=== PATIENT | male | born 1985 | race Caucasian/White ===

== ENCOUNTER 2016-10-09 10:19 | Inpatient (IN) | payer BC ==
[2016-10-09] MEDS ORDERED: NITROGLYCERIN OINT 1 INCH/GM PACKET TOPICAL STA (10:43)
[2016-10-09] MEDS ORDERED: ASPIRIN 81 MG CHEW PO STA (10:43)
--- NOTE | 2016-10-09 10:53 | ED ---
General Adult HPI - General Chief complaint: Chest Pain Stated complaint: chest pain Time Seen by Provider: 10/09/16 10:30 Source: patient, RN notes reviewed Mode of arrival: wheelchair Limitations: no limitations - History of Present Illness Initial comments: This is a 31-year-old male who presents emergency department with no significant past medical history. Patient denies diabetes hypertension high cholesterol or smoking history. Patient comes in today because he is complaining of left-sided chest pain he thinks it's sharp in nature and occasionally radiates down his left arm. Patient states that the pain is been intermittent lasting couple hours at a time. Patient states he has noticed some shortness of breath but nothing significant. Patient denies any diaphoresis. Patient denies any nausea. Patient denies any similar symptoms in the past. Patient denies any abdominal pain patient denies vomiting or diarrhea. Patient states she's not been any recent long trips or travel. Patient denies any leg pain or calf tenderness. Patient denies any leg swelling. Patient denies any recent fever chills or cough. - Related Data Home Medications Medication Instructions Recorded Confirmed Albuterol Inhaler [Ventolin Hfa 1 - 2 puff INHALATION RT-Q6H PRN 10/09/16 Inhaler] Dextroamphetamine/Amphetamine 30 mg PO DAILY 10/09/16 10/09/16 [Adderall] Allergies Allergy/AdvReac Type Severity Reaction Status Date / Time No Known Allergies Allergy Verified 10/09/16 10:59 Review of Systems ROS Statement: Those systems with pertinent positive or pertinent negative responses have been documented in the HPI. ROS Other: All systems not noted in ROS Statement are negative. Past Medical History Past Medical History: No Reported History History of Any Multi-Drug Resistant Organisms: None Reported Past Surgical History: Hernia Repair, Orthopedic Surgery Past Psychological History: No Psychological Hx Reported Smoking Status: Never smoker Past Alcohol Use History: Rare Past Drug Use History: None Reported General Exam - General Exam Comments Initial Comments: GENERAL: Patient is well-developed and well-nourished. Patient is nontoxic and well- hydrated and is in mild distress. ENT: Neck is soft and supple. No significant lymphadenopathy is noted. Oropharynx is clear. Moist mucous membranes. Neck has full range of motion without eliciting any pain. EYES: The sclera were anicteric and conjunctiva were pink and moist. Extraocular movements were intact and pupils were equal round and reactive to light. Eyelids were unremarkable. PULMONARY: Unlabored respirations. Good breath sounds bilaterally. No audible rales rhonchi or wheezing was noted. CARDIOVASCULAR: There is a regular rate and rhythm without any murmurs gallops or rubs. ABDOMEN: Soft and nontender with normal bowel sounds. No palpable organomegaly was noted. There is no palpable pulsatile mass. SKIN: Skin is clear with no lesions or rashes and otherwise unremarkable. NEUROLOGIC: Patient is alert and oriented x3. Cranial nerves II through XII are grossly intact. Motor and sensory are also intact. Normal speech, volume and content. Symmetrical smile. MUSCULOSKELETAL: Normal extremities with adequate strength and full range of motion. LYMPHATICS: No significant lymphadenopathy is noted PSYCHIATRIC: Normal psychiatric evaluation. Normal interpersonal interactions appears functionally intact in deals appropriately with others. No signs of depression. No signs of anxiety. Limitations: no limitations Course Vital Signs 10/09/16 10/09/16 10:29 10:38 Temperature 99.0 F Pulse Rate 83 85 Respiratory 20 18 Rate Blood Pressure 126/74 138/74 O2 Sat by Pulse 99 100 Oximetry Medical Decision Making - Medical Decision Making EKG shows normal sinus rhythm at 74 bpm MI interval 144 QRS is 100 QT interval 348 QTC is 386. Patient's EKG shows ST segment elevation in leads II, III, and F aVF. Soon as I saw the elevation I spoke with Dr. Taco Gonzalez down immediately to see the patient in the emergency department. Patient is going to the [facility] per Dr. Weaver. Patient remained chest pain free throughout the ED stay Critical Care Time Critical Care Time: Yes Total Critical Care Time: 35 Disposition Clinical Impression: ST elevation myocardial infarction (STEMI) Disposition: ADMITTED IP TO THIS HOSP Referrals: Darnell Diaz MD [Primary Care Provider] - 1-2 days Time of Disposition: 11:04
[2016-10-09] MEDS ORDERED: HEPARIN SODIUM,PORCINE 5,000 UNIT/ML 1 ML VIAL IV ONE (11:06)
[2016-10-09] MEDS ORDERED: ATORVASTATIN 80 MG TAB PO STA (11:06)
[2016-10-09 11:08] LABS: Basophils # (A) 0.1 k/uL (0-0.2); Basophils % (A) 1 %; CH 30.6; CHCM 35.4; Eosinophils # (A) 0.2 k/uL (0-0.7); Eosinophils % (A) 2 %; HCT 44.4 % (39.0-53.0); HDW 3.08; HGB 15.6 gm/dL (13.0-17.5); Luc # (Auto) 0.13; Luc % (Auto) 1; Lymphocytes # (A) 1.7 k/uL (1.0-4.8); Lymphocytes % (A) 18 %; MCH 30.4 pg (25.0-35.0); MCHC 35.1 g/dL (31.0-37.0); MCV 86.8 fL (80.0-100.0); Mean Platelet Volume 7.8; Monocytes # (A) 0.4 k/uL (0-1.0); Monocytes % (A) 5 %; Neutrophils # (A) 6.9 k/uL (1.3-7.7); Neutrophils % (A) 73 %; RBC 5.11 m/uL (4.30-5.90); RDW 13.1 % (11.5-15.5); WBC 9.4 k/uL (3.8-10.6); WBC (Perox) 8.93
[2016-10-09] MEDS ORDERED: LIDOCAINE 2% INJ 20 MG/ML (20 ML MDV) ONE (11:08)
[2016-10-09 11:12] LABS: ALT 43 U/L (21-72); AST 76 U/L (17-59); Alkaline Phosphatase 78 U/L (38-126); Anion Gap 10 mmol/L; Blood Urea Nitrogen 12 mg/dL (9-20); Calcium 9.4 mg/dL (8.4-10.2); Carbon Dioxide 26 mmol/L (22-30); Chloride 105 mmol/L (98-107); Glucose 110 mg/dL (74-99); Non-African American GFR(MDRD) >60 (>60 ml/min/1.73 sqM); Potassium 4.1 mmol/L (3.5-5.1); Sodium 141 mmol/L (137-145); Total Bilirubin 0.8 mg/dL (0.2-1.3); Total Protein 7.6 g/dL (6.3-8.2)
--- NOTE | 2016-10-09 11:12 | XR ---
EXAMINATION TYPE: XR chest 1V DATE OF EXAM: 10/09/2016 COMPARISON: NONE HISTORY: Chest pain today. TECHNIQUE: Single AP portable frontal upright view of the chest is obtained. FINDINGS: There is no focal air space opacity, pleural effusion, or pneumothorax seen. The cardiac silhouette size is within normal limits. The osseous structures are intact. IMPRESSION: No acute process.
--- NOTE | 2016-10-09 11:19 | CONS ---
DATE OF CONSULTATION: CHIEF COMPLAINT: Chest pain. This is a 31-year-old gentleman with no significant past medical history who initially presented to an urgent care center with chest pain. He describes it as precordial chest tightness 6 out of 10 intensity that radiated to both his arms, was associated with some shortness of breath and diaphoresis. He had an EKG that showed inferior ST elevation due to which he was sent to the emergency room at [facility] where I am seeing him for the first time. The patient received nitro paste following which he became pain free. He does have ST segment elevation in inferior leads even on the EKG that was repeated here at the hospital. There is no prior history of exertional chest pain or shortness of breath. There is no medical history at all. MEDICATIONS: None. ALLERGIES: None. FAMILY HISTORY: Negative for premature coronary artery disease. SOCIAL HISTORY: Negative for smoking, EtOH abuse or drug abuse. REVIEW OF SYSTEMS: HEENT: Unremarkable. CARDIAC: As described above. RESPIRATORY: Negative. GI: Negative. GENITOURINARY: Negative. ALLERGY/IMMUNOLOGY: Negative. SKIN: Negative. MUSCULOSKELETAL: Negative. ENDOCRINE: Negative. HEMATOLOGICAL: Negative. DERMATOLOGIC: Negative. CONSTITUTIONAL: Negative. ONCOLOGICAL: Negative. The rest of the system review is not relevant. On exam, comfortable at rest. Vital signs are stable. There is no jugular venous distention. Carotid upstroke is normal. There is no bruit. Chest is clear to auscultation and percussion. Heart exam reveals first and second heart sounds. No gallop. No murmur, no rub. Abdomen is soft, nontender. Exam of extremities did not reveal edema. Peripheral pulses are felt. Pulses are equal and normal in both upper extremities. Blood pressures are equal and normal in both upper extremities. Labs are pending at this time. ASSESSMENT: Chest pain with ST segment elevation in inferior leads, probably due to acute inferior wall myocardial infarction. PLAN: The patient is relatively young, does not have any risk factors, but I do not have any explanation for his chest pain and the EKG changes, hence, I advised him to undergo emergent cardiac catheterization. I explained to him risks, benefits, and alternatives. He understood and accepted.
[2016-10-09 11:24] LABS: Partial Thromboplastin Time 24.7 sec (22.0-30.0); Prothrombin Time 10.1 sec (9.0-12.0)
[2016-10-09] MEDS ORDERED: MIDAZOLAM 2 MG/2 ML VIAL ONE (11:30)
[2016-10-09] MEDS ORDERED: MIDAZOLAM 2 MG/2 ML VIAL IV ONE (11:32)
[2016-10-09] MEDS ORDERED: LIDOCAINE 2% INJ 20 MG/ML SQ ONE (11:35)
[2016-10-09] MEDS ORDERED: SODIUM CHLORIDE 0.9% 1,000 ML IV ONE (11:36)
[2016-10-09] MEDS ORDERED: IOHEXOL 350 MG/ML 125ML BOTTLE INJ ONE (11:46)
[2016-10-09] MEDS ORDERED: RX INFO: IV CONTRAST WAS GIVEN 1 EACH MISC MISCELLANE PRN (11:52)
[2016-10-09 11:54] LABS: Creatine Kinase MB 26.1 ng/mL (0.0-2.4)
[2016-10-09 11:55] LABS: Troponin I 14.3 ng/mL (0.000-0.034)
--- NOTE | 2016-10-09 12:09 | CC ---
DATE OF SERVICE: INDICATION: Acute inferior wall myocardial infarction. PROCEDURE NOTE: After obtaining informed consent, left heart catheterization and coronary angiogram and LV gram were performed via the right femoral artery using standard Shari catheters. Patient tolerated the procedure well without any immediate complications. FINDINGS: 1. HEMODYNAMICS: Left ventricular end-diastolic pressure is 10 mm. There is no significant gradient across the aortic valve. 2. LEFT VENTRICULOGRAM: Left ventriculogram was performed in ESTEBAN position, shows mildly dilated left ventricle with diffuse global hypokinesis with an ejection fraction of around 45%. 3. ANGIOGRAPHIC DATA: LEFT MAIN CORONARY ARTERY: Left main coronary artery is a normal size vessel and is free of stenosis. It divides into left anterior descending coronary artery and circumflex coronary artery. LAD and its branches and circumflex coronary artery are free of significant disease. Right coronary artery is a large dominant vessel and is free of significant stenosis. CONCLUSION: 1. Mild LV systolic dysfunction with global hypokinesia with more regional hypokinesis involving basal and inferior wall of unclear significance. 2. Normal coronaries. PLAN: Patient will be admitted to hospital and watched overnight. I will obtain a 2-D echo to rule out pericardial disease, pericardial effusion. I will obtain ( ).
[2016-10-09 12:38] LABS: Cholesterol 140 mg/dL (<200); HDL Cholesterol 47 mg/dL (40-60); Triglycerides 79 mg/dL (<150)
[2016-10-09] MEDS: ATENOLOL 25 MG TAB PO SCH (14:33)
[2016-10-09] MEDS: SODIUM CHLORIDE 0.9% 1,000 ML IV SCH ×2 (14:37→21:36)
[2016-10-09] MEDS: ACETAMINOPHEN TAB 500 MG TAB PO PRN (17:53)
[2016-10-10] MEDS: ACETAMINOPHEN TAB 500 MG TAB PO PRN (06:01)
[2016-10-10] MEDS ORDERED: HYDROmorphone 1 MG/ML 1 ML SYRINGE IVP STA (06:08)
--- NOTE | 2016-10-10 06:33 | HP ---
DATE OF ADMISSION: 10/09/2016 PRESENTING COMPLAINT: Chest pain. HISTORY OF PRESENTING COMPLAINT: This is a pleasant 31-year-old patient of Dr. Diaz with unremarkable past medical history except that for ADD. The patient last Friday had an episode of fever, felt congested, and symptoms lasted for about 24 hours. The patient's 2 sons had been sick sequentially. Patient then did well up until 5 days later when on Friday patient had some discomfort in the chest precordial, just felt a bit tired. Symptoms present on and off until Friday morning, that is today. Patient has had a rather significant pressure-like in the precordial area going down the left arm slightly short of breath, tired. Patient initially went down to the [facility] and when they looked at the EKG sent him down here. Patient with the EKG and troponin rise to 14 he was taken down to the can labeler by Dr. Merrick España and came back to show normal coronaries. Currently patient does not have any myalgias, no stuffiness, no fever, no headache. REVIEW OF SYSTEMS: CONSTITUTIONAL: Tired. HEENT: None. RESPIRATORY: As above. CARDIOVASCULAR: As above. GASTROINTESTINAL: None. GENITOURINARY: None. MUSCULOSKELETAL: None. DERMATOLOGIC: None. HEMATOLOGIC: None. LYMPHATICS: None. PSYCHIATRY: None. NEUROLOGICAL: None. PAST MEDICAL HISTORY: Asthma as a child. PAST SURGICAL HISTORY: Orthopedic surgery, left inguinal hernia repair, left collar bone surgery due to fracture. SOCIAL HISTORY: The patient lives with significant other and 2 children ages 6 years and 1 year. Does not smoke. Drinks alcohol occasionally, more so in the past. Denies any use of recreational drugs. Family history of hypertension. HOME MEDICATIONS: 1. Adderall 30 mg daily. 2. Ventolin 1 to 2 puffs q.6 p.r.n. ALLERGIES: None. On examination, temperature 99, pulse 83, respiration 20, blood pressure 126/74, pulse ox 99% on room air. GENERAL APPEARANCE: Average built, lying in bed, not in distress. EYES: Pupils equal. Conjunctivae normal. HEENT: Oral cavity normal. NECK: JVD not raised. Mass not palpable. RESPIRATORY: Effort normal. Lungs are clear. CARDIOVASCULAR: First and second sounds normal. No edema. ABDOMEN: Soft, nontender. Liver and spleen not palpable. LYMPHATIC: No lymph node palpable in neck or axillae. PSYCHIATRY: Alert and oriented x3. Mood and affect normal. NEUROLOGICAL: Pupils equal. Cranial nerves grossly intact. Power and sensation grossly intact. INVESTIGATIONS: White count 9.4, hemoglobin 15.6. Potassium 4.1. BUN 12, creatinine 0.88. AST 76. Troponin is 14.3. Repeat 10.0. EKG shows a cove elevation in leads II, III, aVF also some in the V2 to V4. ASSESSMENT: 1. This patient probably has an acute myopericarditis could be from a viral organism. Differential could include coxsackie virus given that 2 children were sick and given the extreme rise in troponins and having normal cardiac catheterization. 2. Mildly abnormal AST. PLAN: Per cardiology, patient can be on beta jama. Patient's risk factors are minimum for cardiac disease. Will watch for any arrhythmias at this point. Will send off coxsackie antibody titers though currently patient frankly has no symptoms of the same. Care was discussed with the patient.
[2016-10-10] MEDS: ATENOLOL 25 MG TAB PO SCH (08:33)
--- NOTE | 2016-10-10 08:54 | ECHOF ---
Referral Reason:mi MEASUREMENTS -------- HEIGHT: 180.3 cm WEIGHT: 93.9 kg BP: 138/74 RVIDd: 2.8 cm (< 3.3) IVSd: 1.2 cm (0.6 - 1.1) LVIDd: 5.7 cm (3.9 - 5.3) LVPWd: 1.2 cm (0.6 - 1.1) IVSs: 1.6 cm LVIDs: 4.5 cm LVPWs: 1.7 cm LA Diam: 4.0 cm (2.7 - 3.8) Ao Diam: 3.4 cm (2.0 - 3.7) AV Cusp: 2.8 cm (1.5 - 2.6) MV EXCURSION: 27.983 mm (> 18.000) MV EF SLOPE: 106 mm/s (70 - 150) EPSS: 1.0 cm MV E Remy: 0.62 m/s MV DecT: 291 ms MV A Remy: 0.48 m/s MV E/A Ratio: 1.28 RAP: 5.00 mmHg RVSP: 20.59 mmHg FINDINGS -------- Sinus rhythm. This was a technically good study. The left ventricular size is normal. There is borderline concentric left ventricular hypertrophy. Overall left ventricular systolic function is mild-moderately impaired with, an EF between 40 - 45 %. The right ventricle is normal in size. The left atrium is normal in size. The right atrium is normal in size. The aortic valve is trileaflet and appears structurally normal. The mitral valve leaflets are mildly thickened. Mild mitral annular calcification present. The tricuspid valve appears structurally normal. Trace/mild (physiologic) pulmonic regurgitation. The aortic root size is normal. Normal inferior vena cava with normal inspiratory collapse consistent with estimated right atrial pressure of 5 mmHg. The pericardium is normal. CONCLUSIONS -------- 1. Sinus rhythm. 2. Mild mitral annular calcification present. 3. The tricuspid valve appears structurally normal. 4. Trace/mild (physiologic) pulmonic regurgitation. 5. The aortic root size is normal. 6. Normal inferior vena cava with normal inspiratory collapse consistent with estimated right atrial pressure of 5 mmHg. 7. The pericardium is normal. 8. This was a technically good study. 9. The left ventricular size is normal. 10. There is borderline concentric left ventricular hypertrophy. 11. Overall left ventricular systolic function is mild-moderately impaired with, an EF between 40 - 45 %. 12. The right ventricle is normal in size. 13. The left atrium is normal in size. 14. The aortic valve is trileaflet and appears structurally normal. 15. The mitral valve leaflets are mildly thickened. MANAGER ED: Elin Mathias RDCS
--- NOTE | 2016-10-10 12:32 | P.PN ---
Subjective Principal diagnosis: Viral myocarditis This is a pleasant 31-year-old gentleman with no significant past medical history who initially presented to the hospital with symptoms of chest tightness. His EKG revealed inferior ST elevation and for this reason he was taken directly to the cardiac catheterization lab by Dr. España. Cardiac catheterization revealed normal coronary arteries with mild LV systolic dysfunction and global hypokinesia. Echocardiogram with Doppler study performed today revealed an ejection fraction of 40-45% with global hypokinesia. Patient did have one episode of chest discomfort through the night last night, at the time of my examination this morning he is currently chest pain-free. He also states that his and children have recently had upper respiratory infections and he himself had a touch of it with associated fever in the past one week. Blood pressure today 125/90 with a heart rate in the 60s. At times it is noted that his heart rate goes down into the low 50s. We will decrease the dose of beta jama and add an DEEP inhibitor to his medication regime. Because of the chest discomfort, we will also add Motrin 200 mg one tablet by mouth 3 times a day. Objective - Vital Signs Vital signs: Vital Signs Temp 96.8 F L 10/10/16 08:00 Pulse 55 L 10/10/16 08:00 Resp 17 10/10/16 04:00 BP 118/61 10/10/16 08:00 Pulse Ox 96 10/10/16 08:32 Intake & Output 10/09/16 10/10/16 10/10/16 18:59 06:59 18:59 Intake Total 485 525 200 Balance 485 525 200 Weight 93.894 kg 93.1 kg Intake: IV 50 525 Sodium Chloride 0.9% 1, 525 000 ml @ 75 mls/hr IV . [id number] DOC Rx#:[id number] Intake, IV Titration 75 Amount Sodium Chloride 0.9% 1, 75 000 ml @ 75 mls/hr IV . [id number] DOC Rx#:[id number] Oral 360 200 Other: Voiding Method Toilet # Voids 1 - Exam PHYSICAL EXAMINATION: HEENT: Head is atraumatic, normocephalic. Pupils equal, round. Neck is supple. There is no elevated jugular venous pressure. HEART EXAMINATION: Heart S1, S2 normal. No murmur or gallop heard. CHEST EXAMINATION: Lungs are clear to auscultation and precussion. No chest wall tenderness is noted on palpation or with deep breathing. ABDOMEN: Soft, nontender. Bowel sounds are heard. No organomegaly noted. EXTREMITIES: 2+ peripheral pulses with no evidence of peripheral edema and no calf tenderness noted. NEUROLOGIC patient is awake, alert and oriented -3. . - Labs CBC & Chem 7: 10/09/16 10:40 10/09/16 10:40 Labs: Abnormal Lab Results - Last 24 Hours (Table) 10/09/16 10/09/16 Range/Units 16:48 22:33 Troponin I 10.100 H* 7.530 H* (0.000-0.034) ng/mL Assessment and Plan (1) Chest pain Status: Acute (2) ST elevation Status: Acute (3) S/P cardiac cath Status: Acute (4) Normal coronary angiogram Status: Acute (5) Cardiomyopathy Status: Acute (6) Viral myocarditis Status: Acute Plan: From cardiology's perspective, we'll decrease the patient's current dose of beta jama. We will add an DEEP inhibitor to his medication regime. We will also start the patient on Motrin 200 mg one tablet by mouth 3 times a day. Plan for possible discharge home in 24 hours if stable. DNP note has been reviewed, I agree with a documented findings and plan of care. Patient was seen and examined.
[2016-10-10] MEDS: IBUPROFEN 200 MG TAB PO SCH ×3 (14:32→21:37)
[2016-10-10] MEDS: SODIUM CHLORIDE 0.9% 1,000 ML IV SCH (14:33)
[2016-10-10] MEDS: LISINOPRIL 5 MG TAB PO SCH (14:33)
--- NOTE | 2016-10-10 21:05 | PN ---
DATE OF SERVICE: 10/10/2016 PRESENTING COMPLAINT: Chest pain. INTERVAL HISTORY: This patient has what appears to be acute myopericarditis, could be from viral infection, had a cardiac cath with normal coronaries. Slight ( ) of chest pain yesterday. A 2-D echo shows an EF around 40 to 45%. Patient has been up to the bathroom. Feels a tired. Review of systems done for constitutional, cardiovascular, GI, pulmonary relevant findings as above. Current medications are reviewed that include: 1. Tenormin. 2. Zestril. On examination, temperature 96, pulse 55, respiration 16, blood pressure 108/61, pulse ox 96% on room air. GENERAL APPEARANCE: Lying in bed. Awake. EYES: Pupils equal. Conjunctivae normal. NECK: JVD not raised. Mass not palpable. RESPIRATORY: Effort normal. Lungs are clear. CARDIOVASCULAR: First and second sounds normal. No edema. PSYCH: Alert and oriented times three. Mood and affect normal. ABDOMEN: Soft, nontender. Liver and spleen not palpable. INVESTIGATIONS: Troponin 14.3, 10.1, 7.5. A 2-D echo ejection fraction 40% to 45%. ASSESSMENT: 1. Acute myopericarditis, likely from viral insult coxsackie virus, cultures have been sent off. 2. Nonischemic cardiomyopathy; ejection fraction 40% to 45%, probably from acute insult. PLAN: Patient encouraged to be out on the floor and see how he does. Watch for any arrhythmias. Care was discussed with the patient. Will follow.
[2016-10-10 21:29] VITALS: RESP 16
[2016-10-11] MEDS: SODIUM CHLORIDE 0.9% 1,000 ML IV SCH (01:03)
[2016-10-11 07:26] LABS: ALT 37 U/L (21-72); AST 37 U/L (17-59); Alkaline Phosphatase 72 U/L (38-126); Anion Gap 8 mmol/L; Blood Urea Nitrogen 17 mg/dL (9-20); Carbon Dioxide 26 mmol/L (22-30); Chloride 107 mmol/L (98-107); Glucose 97 mg/dL (74-99); Non-African American GFR(MDRD) >60 (>60 ml/min/1.73 sqM); Potassium 4.3 mmol/L (3.5-5.1); Sodium 141 mmol/L (137-145); Total Bilirubin 0.5 mg/dL (0.2-1.3); Total Protein 6.4 g/dL (6.3-8.2)
[2016-10-11] MEDS: LISINOPRIL 5 MG TAB PO SCH (08:31)
[2016-10-11] MEDS: IBUPROFEN 200 MG TAB PO SCH (08:31)
[2016-10-11] MEDS ORDERED: ATENOLOL 12.5 MG TAB PO SCH (09:00)
--- NOTE | 2016-10-11 09:57 | P.PN ---
Subjective Principal diagnosis: Viral Myocarditis -year-old gentleman with no significant past medical history who initially presented to the hospital with symptoms of chest tightness. His EKG revealed inferior ST elevation and for this reason he was taken directly to the cardiac catheterization lab by Dr. Pittman. Cardiac catheterization revealed normal coronary arteries and mild LV systolic dysfunction and global hypokinesia. Echocardiogram with Doppler study performed showed an ejection fraction of 40-45% with global hypokinesia. Patient has been chest pain free through the night and this morning. His blood pressure is stable however his heart rate remains low in the 40s and 50s and dropping as low as 38 bpm while sleeping. His beta jama was decreased yesterday. He continues on Motrin 200 mg 3 times a day. Objective - Vital Signs Vital signs: Vital Signs Temp 97.5 F L 10/11/16 08:29 Pulse 55 L 10/11/16 08:29 Resp 16 10/11/16 08:29 BP 112/58 10/11/16 08:29 Pulse Ox 96 10/11/16 08:29 Intake & Output 10/10/16 10/11/16 10/11/16 18:59 06:59 18:59 Intake Total 600 Balance 600 Weight 93.2 kg Intake: Oral 600 Other: Voiding Method Toilet # Voids 1 1 - Exam PHYSICAL EXAMINATION: HEENT: Head is atraumatic, normocephalic. Pupils equal, round. Neck is supple. There is no elevated jugular venous pressure. HEART EXAMINATION: Heart sounds regular, S1 and S2 normal. No murmur or gallop heard. CHEST EXAMINATION: Lungs are clear to auscultation and precussion. No chest wall tenderness is noted on palpation or with deep breathing. ABDOMEN: Soft, nontender. Bowel sounds are heard. No organomegaly noted. EXTREMITIES: 2+ peripheral pulses with no evidence of peripheral edema and no calf tenderness noted. NEUROLOGIC patient is awake, alert and oriented x3. . - Labs CBC & Chem 7: 10/09/16 10:40 10/11/16 06:21 Assessment and Plan (1) Cardiomyopathy Status: Acute (2) Chest pain Status: Acute (3) Normal coronary angiogram Status: Acute (4) S/P cardiac cath Status: Acute (5) ST elevation Status: Acute (6) Viral myocarditis Status: Acute (7) Bradycardia Status: Acute Plan: From cardiology's perspective, we will stop beta jama. Continue lisinopril 5 mg by mouth daily. Continue Motrin 200 mg by mouth 3 times a day. Patient is stable for discharge from our standpoint. He will follow-up with Dr. España on October 16 at 3:45 PM. The above dictated assessment and findings were discussed with signing physician. The impression and plan of care have been directed as dictated. Fela Tuttle, Nurse Practitioner, acting as scribe for signing physician.
[2016-10-11 12:24] VITALS: BP 110/69; PULSE 68; TEMP 97.8
--- NOTE | 2016-10-12 09:49 | DS ---
DATE OF ADMISSION: 10/09/2016 DATE OF DISCHARGE: 10/11/2016 FINAL DIAGNOSES: 1. Acute myocarditis probably from viral insult. 2. Nonischemic cardiomyopathy; ejection fraction 40% to 45%, from underlying infection. HOSPITAL COURSE: This patient presented with chest pain, on and off with precipitated febrile illness about a week ago. Patient two sons also sick. Patient's troponin peaked at 14.3. ( ) did show ( ) elevation ( ) cardiac catheterization showed normal coronaries. A 2-D echocardiogram showed EF of 40% to 45%. On the day of discharge, patient up and about, given NSAIDS. Patient coxsackie ( ) were sent away. Otherwise, the patient doing well. ( ) okay to be discharged to Dr. Merrick España. DISCHARGE MEDICATIONS: 1. Ventolin 1 to 2 puffs q.6 p.r.n. 2. ( ) 30 mg a day. 3. Advil 200 mg p.o. t.i.d. 4. Zestril 5 mg p.o. daily. Follow-up with Dr. Diaz on 10/16/2016. Follow up with Dr. Merrick España on 10/16/2016.
--- NOTE | 2016-11-01 13:59 | DS ---
DATE OF ADMISSION: 10/09/2016 DATE OF DISCHARGE: 10/11/2016 FINAL DIAGNOSES: 1. Acute myocarditis probably from viral insult. 2. Nonischemic cardiomyopathy, ejection fraction 40% to 45%, from underlying infection. HOSPITAL COURSE: This patient presented with chest pain on and off with febrile illness about a week ago. The patient's 2 sons are also sick. Patient's troponin peaked at 14.3, coming down. Patient's Coxsackie antibodies were sent away. Patient was seen by vice president of sales, Dr. Merrick España and okayed to be discharged. On examination, lungs are clear. CARDIOVASCULAR: First and second sounds normal. Care was discussed with the patient. DISCHARGE MEDICATIONS: 1. Ventolin HFA 1 to 2 puffs q.6 p.r.n. 2. Adderall 30 mg p.o. daily. 3. Tylenol 1000 mg p.o. q.6 p.r.n. 4. Advil 200 mg p.o. t.i.d. 5. Zestril 5 mg p.o. daily. Follow up with Dr. Diaz on 10/16/16. Follow up with Dr. Merrick España on 10/16/16. Additionally procedure, cardiac catheterization was negative.
== END 2016-10-11 15:03 | disposition home or self-care (01) | DRG 287 ==
LOC: EC 10:19 → 6ICU 11:12 → 6SEL 11:54
PROVIDERS: ADMIT Hospitalist; ATTEND Hospitalist
PROC: B215YZZ Fluoroscopy of Left Heart using Other Contrast (ICD-10-PCS; 2016-10-09)
PROC: B211YZZ Fluoroscopy of Multiple Coronary Arteries using Other Contrast (ICD-10-PCS; 2016-10-09)
PROC: 4A023N7 Measurement of Cardiac Sampling and Pressure, Left Heart, Percutaneous Approach (ICD-10-PCS; principal; 2016-10-09 11:15)
DX: I40.0 Infective myocarditis (principal); I42.9 Cardiomyopathy, unspecified; Z79.899 Other long term (current) drug therapy; Z82.49 Family history of ischemic heart disease and other diseases of the circulatory system
CPT/HCPCS: 36415; 71010; 80053; 80061; 82550; 82553; 83735; 84484; 85025; 85379; 85610; 85652; 85730; 86658; 93005; 93306; 93458; 94760

== ENCOUNTER → 2021-07-18 | Outpatient (CLI) | payer BC ==
[2021-07-19 01:25] LABS: HCT 45.6 % (39.6-50.0); HGB 14.8 g/dL (13.0-17.0); MCHC 32.5 g/dL (32.0-37.0); MCV 89.2 fL (80.0-97.0); Mean Platelet Volume 11.5 fL (9.5-12.2); NRBC Per 100 WBC 0 /100 WBCS (0.0-0.0); Platelet Count 237 X 10*3/uL (140-440); RBC 5.11 X 10*6/uL (4.40-5.60); RDW 13.2 % (11.5-14.5); WBC 6.39 X 10*3/uL (4.50-10.00)
[2021-07-19 06:19] LABS: ALT 38 U/L (10-49); AST 23 U/L (14-35); BUN/Creat Ratio 15.36 Ratio (12.00-20.00); Blood Urea Nitrogen 16.9 mg/dL (9.0-27.0); Calcium 9.3 mg/dL (8.7-10.3); Chloride 102 mmol/L (96-109); Chol/HDL Ratio 2.54 Ratio; Glucose 95 mg/dL (70-110); LDL Cholesterol,Calculated 59.4 mg/dL (0.0-131.0); Non-African American GFR(CKD) 87.1 (60.0-200.0); Potassium 4.6 mmol/L (3.5-5.5); Sodium 137 mmol/L (135-145); VLDL Calculation 11.04 mg/dL (5.00-40.00)
== END | disposition home or self-care (01) ==
LOC: LABWHC1 11:13
PROVIDERS: ATTEND Nurse Practitioner Family
DX: E78.2 Mixed hyperlipidemia (principal); I10 Essential (primary) hypertension
CPT/HCPCS: 36415; 80048; 80061; 84443; 84450; 84460; 85027

== ENCOUNTER 2022-08-24 18:40 | Emergency (ER) | payer BC ==
[2022-08-24 18:44] VITALS: BP 129/85; PULSE 61; RESP 20; TEMP 97.5
[2022-08-24] MEDS ORDERED: DIPH,PERTUS(ACELL)TETVAC-LF 0.5 ML VIAL IM ONE (18:49)
[2022-08-24] MEDS ORDERED: LIDOCAINE 1% INJ 10MG/ML (30 ML VIAL-PF) SQ ONE (18:49)
--- NOTE | 2022-08-24 18:55 | ED ---
General Adult HPI - General Chief complaint: Wound/Laceration Stated complaint: Rt hand cut Time Seen by Provider: 08/24/22 18:45 Source: patient, RN notes reviewed Mode of arrival: ambulatory Limitations: no limitations - History of Present Illness Initial comments: 37-year-old male presents emergency Department with chief complaint of finger laceration. He states that he was working with a garden hose when he cut his left second digit on it. He states that this happened about an hour for before presenting to the emergency department. The laceration is on the knuckle of the left second digit. He states he did not crush his finger. He is able to move his finger. Denies numbness, tingling. He states that his last tetanus shot was around 5 years ago but he is not entirely sure. - Related Data Home Medications Medication Instructions Recorded Confirmed Albuterol Inhaler [Ventolin Hfa 1 - 2 puff INHALATION RT-Q6H PRN 10/09/16 10/09/16 Inhaler] Dextroamphetamine/Amphetamine 30 mg PO DAILY 10/09/16 10/09/16 [Adderall] Previous Rx's Medication Instructions Recorded Acetaminophen Tab [Tylenol] 1,000 mg PO Q6HR PRN tab 10/11/16 Ibuprofen [Advil] 200 mg PO TID tab 10/11/16 lisinopriL [Zestril] 5 mg PO DAILY #30 tab 10/11/16 Allergies Allergy/AdvReac Type Severity Reaction Status Date / Time No Known Allergies Allergy Verified 08/24/22 18:44 Review of Systems ROS Statement: Those systems with pertinent positive or pertinent negative responses have been documented in the HPI. ROS Other: All systems not noted in ROS Statement are negative. 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 Other surgical hx: L inguinal hernia repair, L collar bone sx d/t fracture. Past Anesthesia/Blood Transfusion Reactions: No Reported Reaction Past Psychological History: No Psychological Hx Reported Smoking Status: Never smoker Past Alcohol Use History: Occasional Past Drug Use History: None Reported - Past Family History Father Family Medical History: Hypertension Mother Family Medical History: Thyroid Disorder General Exam Limitations: no limitations General appearance: alert, in no apparent distress Eye exam: Present: normal appearance Respiratory exam: Present: normal lung sounds bilaterally. Absent: respiratory distress, wheezes, rales, rhonchi, stridor Cardiovascular Exam: Present: regular rate, normal rhythm, normal heart sounds. Absent: systolic murmur, diastolic murmur, rubs, gallop, clicks Extremities exam: Present: normal inspection, normal capillary refill, other (laceration to left 2nd digit on the knuckle, ROM slightly decreased, no notable tendon injury). Absent: tenderness, pedal edema, joint swelling, calf tenderness Neurological exam: Present: alert, oriented X3, CN II-XII intact Psychiatric exam: Present: normal affect, normal mood Skin exam: Present: warm, dry, intact, normal color. Absent: rash Course Vital Signs 08/24/22 18:42 Temperature 97.5 F L Pulse Rate 61 Respiratory 20 Rate Blood Pressure 129/85 O2 Sat by Pulse 99 Oximetry Procedures - Laceration Laceration #1 Consent Obtained: verbal consent Indication: laceration Site: hand Size (cm): 3 Description: flap Depth: simple, single layer Anesthetic Used: lidocaine 1% Anesthesia Technique: nerve block Pre-repair: wound explored, irrigated extensively Size of Sutures: 4-0 Number of Sutures: 3 Technique: simple, interrupted Patient Tolerated Procedure: well, no complications Medical Decision Making - Medical Decision Making Was pt. sent in by a medical professional or institution ([facility], FAMILY PRACTICE PHYSICIAN, urgent care, hospital, or detention...) When possible be specific @ -No Did you speak to anyone other than the patient for history (EMS, parent, family, police, friend...)? What history was obtained from this source @ -No Did you review nursing and triage notes (agree or disagree)? Why? @ -I reviewed and agree with nursing and triage notes Were old charts reviewed (outside hosp., previous admission, EMS record, old EKG, old radiological studies, urgent care reports/EKG's, detention records)? Report findings @ -No old charts were reviewed Differential Diagnosis (chest pain, altered mental status, abdominal pain women, abdominal pain men, vaginal bleeding, weakness, fever, dyspnea, syncope, headache, dizziness, GI bleed, back pain, seizure, CVA, palpatations, mental health, musculoskeletal)? @ -Laceration, fracture, foreign body, abrasion, this list is not all-inclusive EKG interpreted by me (3pts min.). @ -None X-rays interpreted by me (1pt min.). @ -None done CT interpreted by me (1pt min.). @ -None done U/S interpreted by me (1pt. min.). @ -None done What testing was considered but not performed or refused? (CT, X-rays, U/S, labs)? Why? @ -X-ray left hand was considered to evaluate for foreign body, patient stated that it was a new razor blade that caused the injury. Low risk for foreign body What meds were considered but not given or refused? Why? @ -None Did you discuss the management of the patient with other professionals (professionals i.e. , PA, FAMILY PRACTICE PHYSICIAN, lab, RT, psych nurse, social work lecturer, engineering faculty member, teacher, military police officer, case resolution specialist)? Give summary @ -No Was smoking cessation discussed for >3mins.? @ -No Was critical care preformed (if so, how long)? @ -No Were there social determinants of health that impacted care today? How? (Homelessness, low income, unemployed, alcoholism, drug addiction, transportation, low edu. Level, literacy, decrease access to med. care, residential, rehab)? @ -No Was there de-escalation of care discussed even if they declined (Discuss DNR or withdrawal of care, Hospice)? DNR status @ -No What co-morbidities impacted this encounter? (DM, HTN, Smoking, COPD, CAD, Cancer, CVA, ARF, Chemo, Hep., AIDS, mental health diagnosis, sleep apnea, morbid obesity)? @ -None Was patient admitted / discharged? Hospital course, mention meds given and route, prescriptions, significant lab abnormalities, going to OR and other pertinent info. @ -Discharged. Patient presented to the emergency department with laceration of the knuckle of the 2nd digit on the left hand. Tetanus was updated. Laceration was cleaned and closed with 3 simple interrupted sutures. Patient discharged in stable condition Undiagnosed new problem with uncertain prognosis? @ -No Drug Therapy requiring intensive monitoring for toxicity (Heparin, Nitro, Insulin, Cardizem)? @ -No Were any procedures done? @ -Laceration repair with 3 simple interrupted sutures of the knuckle for left second digit Diagnosis/symptom? @ -Laceration Acute, or Chronic, or Acute on Chronic? @ -Acute Uncomplicated (without systemic symptoms) or Complicated (systemic symptoms)? @ -Uncomplicated Side effects of treatment? @ -No Exacerbation, Progression, or Severe Exacerbation? @ -No Poses a threat to life or bodily function? How? (Chest pain, [place], [place], pneumonia, PE, COPD, DKA, ARF, appy, cholecystitis, CVA, Diverticulitis, Homicidal, Suicidal, threat to staff... and all critical care pts) @ -No Disposition Clinical Impression: Laceration Disposition: HOME SELF-CARE Condition: Stable Instructions (If sedation given, give patient instructions): Care For Your Stitches (ED) Additional Instructions: Please return to the Emergency Department if symptoms worsen or any other concerns. Is patient prescribed a controlled substance at d/c from ED?: No Referrals: Darnell Diaz MD [Primary Care Provider] - 1-2 days Time of Disposition: 19:55
== END 2022-08-24 20:00 | disposition home or self-care (01) ==
LOC: EC 18:40
DX: S61.210A Laceration without foreign body of right index finger without damage to nail, initial encounter (principal); J45.909 Unspecified asthma, uncomplicated; Z79.899 Other long term (current) drug therapy; Z23 Encounter for immunization; W26.8XXA Contact with other sharp object(s), not elsewhere classified, initial encounter
CPT/HCPCS: 90715; 99282; 90471; 12002; J2001